=== PATIENT | male | born 1960 | race Caucasian/White ===

== ENCOUNTER → 2024-06-01 | Outpatient (CLI) | payer OTHER ==
--- NOTE | 2024-06-01 16:33 | CTL ---
EXAMINATION TYPE: CT Low Dose Lung DATE OF EXAM ORDERED: 06/01/2024 COMPARISON: None CLINICAL INDICATION: Male, 64 years old with history of Z12.2, Z87.891 PERSONAL HISTORY OF NICOTINE D EPEND; PHH, Lung screening for nicotine dependence of 1ppd x20 years, hx of COPD, CAD, Congestive hea rt failure, Emphysema and Tuberculosis. Quit smoking in 2019., Lung cancer screening, History of Smok ing/tobacco use. TECHNIQUE: Low dose computed tomography scan was performed through the chest at 1 mm thick sections a nd reconstructed images in multiple planes at 1 mm and [address] DLP: 99.[address] CTDI: 2.6 mGy Automated exposure control for dose reduction was used. CT DIAGNOSTIC QUALITY: Satisfactory EXAMINATION TYPE: CT Low Dose Lung DATE OF EXAM ORDERED: 06/01/2024 CLINICAL INDICATION: Male, 64 years old with history of Z12.2, Z87.891 PERSONAL HISTORY OF NICOTINE D EPEND, history of tobacco use, Lung cancer screening CT DLP: 99.[address] CTDI: 2.6 mGy Automated exposure control for dose reduction was used. Comparison: None TECHNIQUE: Low dose computed tomography scan was performed through the chest at 1 mm thick sections a nd reconstructed images in multiple planes at 1 mm and [address] DIAGNOSTIC QUALITY: Satisfactory FINDINGS: There are mild to moderate emphysematous changes with an upper lobe predominance. There is mild chronic interstitial scarring and mild bronchiectasis in the upper lobes anteriorly. Th ere are scattered micronodules in calcified granuloma in the right upper lobe. There is no suspicious lung mass or nodule. There is no airspace consolidation. There is no pleural effusion or pneumothorax. There is mild cardiomegaly. The great vessels chest are normal. There is no mediastinal, hilar or axillary adenopathy. Limited scanning through the upper abdomen reveals moderate splenomegaly. The contour of the liver is lobulated which is consistent with cirrhotic liver morphology. There is mild ascites. There are no focal osseous lesions. IMPRESSION: 1. Lung rads Category 2 benign.. Continue routine screening at yearly intervals. 2. No acute cardiopulmonary disease. [id number] emphysematous changes. 3. Mild cardiomegaly. 4. Cirrhotic liver with splenomegaly and mild ascites. [facility], Workstation: BO, 06/01/2024 4:31 PM
== END | disposition home or self-care (01) ==
LOC: RADCTMAIN 15:13
PROVIDERS: ATTEND Internal Medicine
DX: Z12.2 Encounter for screening for malignant neoplasm of respiratory organs (principal); I51.7 Cardiomegaly; R18.8 Other ascites; K74.60 Unspecified cirrhosis of liver; J43.9 Emphysema, unspecified; Z87.891 Personal history of nicotine dependence
CPT/HCPCS: 71271

== ENCOUNTER → 2024-06-02 | Outpatient (CLI) | payer OTHER ==
[2024-06-02 16:33] LABS: INR 1.13 sec (0.93-1.11); Prothrombin Time 12.8 sec (9.9-11.9)
[2024-06-02 16:49] LABS: ALT 18 U/L (10-49); AST 27 U/L (14-35); Albumin 3.9 g/dL (3.8-4.9); Albumin/Globulin Ratio 1.03 Ratio (1.60-3.17); Alkaline Phosphatase 90 U/L (41-126); Blood Urea Nitrogen 15.4 mg/dL (9.0-27.0); Calcium 9.3 mg/dL (8.7-10.3); Carbon Dioxide 25.3 mmol/L (21.6-31.8); Chloride 106 mmol/L (96-109); Chol/HDL Ratio 2.61 Ratio; Globulin 3.8 g/dL (1.6-3.3); Glucose 226 mg/dL (70-110); LDL Cholesterol,Calculated 66.6 mg/dL (0.0-131.0); Potassium 5.7 mmol/L (3.5-5.5); Sodium 139 mmol/L (135-145); Total Bilirubin 0.4 mg/dL (0.3-1.2); Total Protein 7.7 g/dL (6.2-8.2); VLDL Calculation 8.56 mg/dL (5.00-40.00)
[2024-06-02 16:50] LABS: Prostate Specific Antigen 0.09 ng/mL (0.000-4.500)
[2024-06-02 17:03] LABS: Basophils # (A) 0.12 X 10*3/uL (0.00-0.10); Basophils % (A) 1.3 %; Elliptocytes 2+ (None Seen); Eosinophils # (A) 0.43 X 10*3/uL (0.04-0.35); Eosinophils % (A) 4.7 %; HCT 34.5 % (39.6-50.0); HGB 9.2 g/dL (13.0-17.0); Hypochromasia (M) 2+ (None Seen); Lymphocytes # (A) 0.63 X 10*3/uL (0.90-5.00); Lymphocytes % (A) 6.8 %; MCHC 26.7 g/dL (32.0-37.0); MCV 71.4 FL (80.0-97.0); Mean Platelet Volume 11.7 FL (9.5-12.2); Microcytosis (M) 2+ (None Seen); Monocytes # (A) 0.72 X 10*3/uL (0.20-1.00); Monocytes % (A) 7.8 %; NRBC Per 100 WBC 0 X 10*3/uL (0.00-0.01); Neutrophils # (A) 7.31 X 10*3/uL (1.80-7.70); Neutrophils % (A) 79.1 %; Platelet Count 606 X 10*3/uL (140-440); RBC 4.83 X 10*6/uL (4.40-5.60); RDW 20.1 % (11.5-14.5); WBC 9.24 X 10*3/uL (4.50-10.00)
== END | disposition home or self-care (01) ==
LOC: LABWHC1 07:47
PROVIDERS: ATTEND Internal Medicine
DX: Z12.5 Encounter for screening for malignant neoplasm of prostate (principal); E11.9 Type 2 diabetes mellitus without complications; K74.60 Unspecified cirrhosis of liver
CPT/HCPCS: 36415; 80053; 80061; 83036; 83735; 84153; 84443; 85025; 85610

== ENCOUNTER 2024-08-21 08:05 | Day surgery (SDC) | payer MEDICARE, OTHER ==
[2024-08-21 09:16] LABS: Immature Platelet Fraction 6.6 % (1.1-6.1); Mean Platelet Volume 10.9 fL (9.5-12.2); Platelet Count 499 10*3/uL (140-440)
[2024-08-21 09:21] LABS: INR 1.3 (<1.2); Prothrombin Time 13.4 sec (10.0-12.5)
[2024-08-21 09:30] LABS: African American GFR (CKD) >90 (>60 ml/min/1.73 sqM); Glucose 197 mg/dL (74-99); Non-African American GFR(CKD) 80 (>60 ml/min/1.73 sqM)
[2024-08-21 09:34] VITALS: TEMP 98
[2024-08-21] MEDS: ALBUMIN HUMAN 25% 50 ML in EMPTY BAG 1 BAG IVPB SCH (10:04)
[2024-08-21 10:27] VITALS: BP 138/80; PULSE 67; RESP 18
--- NOTE | 2024-08-21 12:05 | US ---
EXAMINATION TYPE: US paracentesis abd w/image DATE OF EXAM: 08/21/2024 9:51 AM COMPARISON: prior paracentesis. CLINICAL INDICATION:Male, 64 years old with history of R18.8 OTHER ASCITES; , ascites ATTENDING: Dr. Zaire Ordonez PROCEDURE: Informed consent was obtained. The risks of the procedure were extensively explained incl uding risk of damage to surrounding bowel with perforation and need for additional procedures. Proced ure was performed in the ultrasound procedure suite. Ultrasound imaging of the abdomen demonstrate as citic fluid. An appropriate access site was localized to the right lower abdomen. Timeout was taken p er protocol. The skin was prepped and draped in the usual sterile fashion and then locally anesthetiz ed with 1% lidocaine. The peritoneal cavity was then accessed via a 5-Mozambican one-step needle/cathete r. Approximately 5300 mL of clear straw-colored fluid was obtained. Postprocedural imaging of the a bdomen demonstrate a minimal amount of abdominal fluid. Patient tolerated procedure well without immediate complication. Hemostasis at the procedural site w as obtained with a sterile bandage placed. The patient was monitored in the holding area following th e procedure and was subsequently discharged in stable condition. IMPRESSION: Ultrasound guided paracentesis, with approximately 5300 mL of clear straw-colored fluid drained. No i mmediate complications were evident. [facility], , 08/21/2024 12:03 PM
== END 2024-08-21 10:40 | disposition home or self-care (01) ==
LOC: RADPROMAIN 08:05
PROVIDERS: ATTEND Internal Medicine Gastroenterology
DX: R18.8 Other ascites (principal)
CPT/HCPCS: 82565; 82947; 85049; 85610; 36415; 49083; P9047

== ENCOUNTER 2024-09-15 07:31 | Day surgery (SDC) | payer MEDICARE, OTHER ==
[2024-09-13 13:53] VITALS: BMI 34.0
[~2024-09-15 07:31] MED LIST: LIDOCAINE 1% (10MG/ML) FOR IV START INTRADERMA PRN
[2024-09-15 08:06] VITALS: TEMP 97
[2024-09-15] MEDS: LACTATED RINGERS 1,000 ML IV SCH (08:14)
[2024-09-15] MEDS: IV FLUID CONTINUATION 1,000 ML IV ONE (08:15)
[2024-09-15] MEDS ORDERED: LIDOCAINE 2% (PF) 20 MG/ML 5 ML VIAL ONE (08:16)
[2024-09-15] MEDS ORDERED: PROPOFOL 10 MG/ML 20 ML VIAL IV ONE (08:16)
[2024-09-15 08:23] LABS: Glucose,Whole Blood 140 mg/dL (70-110)
--- NOTE | 2024-09-15 08:43 | P.PCN ---
Date of Procedure: 09/15/24 Procedure(s) Performed: Brief history: Patient is a pleasant 64-year-old white male scheduled for an elective upper endoscopy as well as colonoscopy as a part of evaluation of iron deficiency anemia. He has history of cirrhosis of the liver diagnosed 6 months ago. Procedure performed: Esophagogastroduodenoscopy with biopsy Colonoscopy with biopsy and Endo Clip placement Preoperative diagnosis: Iron deficiency anemia History of liver cirrhosis Anesthesia: MAC Procedure: After informed consent was obtained from the patient was brought into the endoscopy unit and IV sedation was administered by anesthesia under continuous monitoring. Initially upper endoscopy was done. The Olympus GF 160 video endoscope was inserted inserted into the mouth and esophagus intubated without any difficulty and was gradually advanced into the stomach and duodenum and carefully examined. The bulb and second part of the duodenum appeared normal. The scope was then withdrawn into the stomach adequately insufflated with air and upon careful examination the antrum and body, cardia and fundus had gastritis and changes consistent with mild to moderate portal hypertensive gastropathy. Biopsies were done from the antrum. No gastric varices identified.. The scope was then withdrawn into the esophagus. The GE junction was located at 40 cm to the incisors. It appeared regular with no erythema erosions or ulcerations. There were large mid and distal esophageal varices identified with no red jeevan inman. Patient tolerated the procedure well. At this time the patient continued to remain sedation. Initial digital rectal examination was normal. Olympus CF 160 video colonoscope was then inserted into the rectum and gradually advanced to the cecum without any difficulty. Careful examination was performed as the scope was gradually being withdrawn. The prep was excellent. The cecum, appeared normal. The ascending colon there was a 4 mm sessile polyp removed by cold biopsy. In the descending colon there was another 3 mm sessile polyp removed by cold biopsy. In the rectum there was a 4 mm proximal rectal polyp that was removed by cold biopsy and immediately there was significant oozing identified. Hence an Endo Clip was placed with good hemostasis. Rest of the rectum appeared normal. Retroflexion was performed in the rectum and no lesions were noted. Patient tolerated the procedure well. Impression: 1. Upper endoscopy revealed large mid and distal esophageal varices with no red jeevan inman and mild to moderate portal hypertensive gastropathy 2. Colonoscopy revealed: 4 millimeter ascending colon polyp status post cold biopsy 3 mm descending colon polyp status post cold biopsy 4 mm proximal rectal polyp status post cold biopsy followed by oozing and hence Endo Clip was placed with good hemostasis Recommendations: Findings of this examination were discussed with the patient as well as his family. He was advised to follow the biopsy results. Will start him on nonselective beta-cristel as a part of primary prevention of esophageal variceal bleeding because of presence of large esophageal varices and also discussed about esophageal variceal ligation in the near future. Follow-up in the office in 2 weeks.
[2024-09-15 08:57] VITALS: RESP 12
[2024-09-15 09:12] VITALS: BP 149/87; PULSE 59
== END 2024-09-15 09:47 | disposition home or self-care (01) ==
LOC: ORWHC2ENDO 07:31
PROVIDERS: ATTEND Internal Medicine Gastroenterology
DX: K29.50 Unspecified chronic gastritis without bleeding (principal); D12.2 Benign neoplasm of ascending colon; D12.4 Benign neoplasm of descending colon; D12.8 Benign neoplasm of rectum; K21.9 Gastro-esophageal reflux disease without esophagitis; K70.31 Alcoholic cirrhosis of liver with ascites; I85.10 Secondary esophageal varices without bleeding; B19.20 Unspecified viral hepatitis C without hepatic coma; D50.9 Iron deficiency anemia, unspecified; I25.10 Atherosclerotic heart disease of native coronary artery without angina pectoris; J44.89 Other specified chronic obstructive pulmonary disease; I50.9 Heart failure, unspecified; H91.90 Unspecified hearing loss, unspecified ear; Z95.1 Presence of aortocoronary bypass graft; Z99.89 Dependence on other enabling machines and devices; Z79.02 Long term (current) use of antithrombotics/antiplatelets; Z79.82 Long term (current) use of aspirin; Z79.4 Long term (current) use of insulin; Z79.899 Other long term (current) drug therapy
CPT/HCPCS: 45380; 43239; J2704; J2003; 88305

== ENCOUNTER 2024-09-23 12:04 | Emergency (ER) | payer MEDICARE ==
[2024-09-23 12:10] VITALS: BP 170/79; PULSE 75; RESP 20; TEMP 98.1
--- NOTE | 2024-09-23 12:42 | ED ---
General Adult HPI - General Chief complaint: Abdominal Pain Stated complaint: Abd swelling Time Seen by Provider: 09/23/24 12:15 Source: patient, RN notes reviewed Mode of arrival: ambulatory Limitations: no limitations - History of Present Illness Initial comments: Patient is a 64-year-old male presenting to the emergency department for abdominal swelling. Patient does have history of liver disease and ascites. Patient has been drained twice previously. Patient states this has been worsening over the past few days. Patient may have some mild dyspnea associated. Patient feels full. No leg pain or leg swelling. - Related Data Home Medications Medication Instructions Recorded Confirmed Aspirin [Adult Low Dose Aspirin EC] 81 mg PO DAILY 08/16/24 09/13/24 Atorvastatin [Lipitor] 40 mg PO HS 08/16/24 09/13/24 Ferrous Sulfate [Iron] 325 mg PO BID 08/16/24 09/13/24 Furosemide [Lasix] 40 mg PO DAILY 08/16/24 09/13/24 Insulin Glargine,Hum.rec.anlog 20 units SQ BID 08/16/24 09/13/24 [Lantus Solostar Pen] Isosorbide Mononitrate ER [Imdur] 30 mg PO DAILY 08/16/24 09/13/24 Spironolactone 50 mg PO DAILY 08/16/24 09/13/24 Allergies Allergy/AdvReac Type Severity Reaction Status Date / Time Iodinated Contrast Media Allergy Rash/Hives Verified 09/23/24 12:10 morphine Allergy Rash/Hives Verified 09/23/24 12:09 Review of Systems ROS Statement: Those systems with pertinent positive or pertinent negative responses have been documented in the HPI. ROS Other: All systems not noted in ROS Statement are negative. Constitutional: Denies: fever Eyes: Denies: eye pain ENT: Denies: throat pain Cardiovascular: Denies: chest pain Gastrointestinal: Reports: as per HPI Genitourinary: Denies: dysuria Musculoskeletal: Denies: back pain Past Medical History Past Medical History: Asthma, Diabetes Mellitus, Liver Disease Additional Past Medical History / Comment(s): CHF History of Any Multi-Drug Resistant Organisms: None Reported Past Surgical History: Heart Catheterization With Stent Additional Past Surgical History / Comment(s): Triple 2010, 3 stent placement Past Anesthesia/Blood Transfusion Reactions: No Reported Reaction Date of Last Stent Placement:: 07/2023 Past Psychological History: Depression Smoking Status: Former smoker, Vaper Past Alcohol Use History: None Reported Past Drug Use History: None Reported - Past Family History Mother History Unknown: Yes Additional Family Medical History / Comment(s): Alcoholic Father Additional Family Medical History / Comment(s): lung General Exam Limitations: no limitations General appearance: alert, in no apparent distress Head exam: Present: normocephalic Eye exam: Present: normal appearance Neck exam: Present: normal inspection Respiratory exam: Present: normal lung sounds bilaterally Cardiovascular Exam: Present: regular rate, normal rhythm GI/Abdominal exam: Present: distended (Moderate ascites). Absent: tenderness Extremities exam: Present: normal inspection. Absent: pedal edema, calf tenderness Neurological exam: Present: alert Psychiatric exam: Present: normal affect, normal mood Skin exam: Present: normal color Course Vital Signs 09/23/24 12:07 Temperature 98.1 F Pulse Rate 75 Respiratory 20 Rate Blood Pressure 170/79 O2 Sat by Pulse 96 Oximetry Medical Decision Making - Medical Decision Making Was pt. sent in by a medical professional or institution (, PA, CULTURE MEDIA LABORATORY ASSISTANT, urgent care, hospital, or long-term...) When possible be specific @ -No Did you speak to anyone other than the patient for history (EMS, parent, family, police, friend...)? What history was obtained from this source @ -Family is present and confirms history of liver disease and ascites Did you review nursing and triage notes (agree or disagree)? Why? @ -I reviewed and agree with nursing and triage notes Were old charts reviewed (outside hosp., previous admission, EMS record, old EKG, old radiological studies, urgent care reports/EKG's, long-term records)? Report findings @ -No old charts were reviewed Differential Diagnosis (chest pain, altered mental status, abdominal pain women, abdominal pain men, vaginal bleeding, weakness, fever, dyspnea, syncope, headache, dizziness, GI bleed, back pain, seizure, CVA, palpatations, mental health, musculoskeletal)? @ -Differential Abdominal Pain Men: Appendicitis, cholecystitis, diverticulosis, ischemic bowel, pancreatitis, hepatitis, UTI, gastroenteritis, AAA, incarcerated hernia, bowel obstruction, constipation, inflammatory bowel, hepatitis, peptic ulcer disease, splenic infarction, perforated viscus, testicular torsion, this is not meant to be an all-inclusive list EKG interpreted by me (3pts min.). @ -As above X-rays interpreted by me (1pt min.). @ -None done CT interpreted by me (1pt min.). @ -None done U/S interpreted by me (1pt. min.). @ -None done What testing was considered but not performed or refused? (CT, X-rays, U/S, labs)? Why? @ -None What meds were considered but not given or refused? Why? @ -None Did you discuss the management of the patient with other professionals (professionals i.e. Dr., PA, CULTURE MEDIA LABORATORY ASSISTANT, lab, RT, psych nurse, social work instructor, shaker washer, teacher, president and chief executive officer, case sealer)? Give summary @ -No Was smoking cessation discussed for >3mins.? @ -No Was critical care preformed (if so, how long)? @ -No Were there social determinants of health that impacted care today? How? (Homelessness, low income, unemployed, alcoholism, drug addiction, transportation, low edu. Level, literacy, decrease access to med. care, nursing home, rehab)? @ -No Was there de-escalation of care discussed even if they declined (Discuss DNR or withdrawal of care, Hospice)? DNR status @ -No What co-morbidities impacted this encounter? (DM, HTN, Smoking, COPD, CAD, Cancer, CVA, ARF, Chemo, Hep., AIDS, mental health diagnosis, sleep apnea, morbid obesity)? @ -Liver disease and history of ascites Was patient admitted / discharged? Hospital course, mention meds given and route, prescriptions, significant lab abnormalities, going to OR and other pertinent info. @ -Patient presents with ascites with desire to have paracentesis done. There is no availability of interventional radiology or gastroenterology. Patient is agreeable to discharge and will follow-up preferably Wednesday for outpatient paracentesis. Patient is made aware if symptoms worsen he can be reevaluated or can consider further evaluation at a different facility such as [facility] who will likely have the ability to do this sooner. Patient does demonstrate understanding. Patient provided with prescription for ultrasound paracentesis Undiagnosed new problem with uncertain prognosis? @ -No Drug Therapy requiring intensive monitoring for toxicity (Heparin, Nitro, Insulin, Cardizem)? @ -No Were any procedures done? @ -No Diagnosis/symptom? @ -Ascites Acute, or Chronic, or Acute on Chronic? @ -Acute Uncomplicated (without systemic symptoms) or Complicated (systemic symptoms)? @ -Default Side effects of treatment? @ -No Exacerbation, Progression, or Severe Exacerbation? @ -No Poses a threat to life or bodily function? How? (Chest pain, [place], [place], pneumonia, PE, COPD, DKA, ARF, appy, cholecystitis, CVA, Diverticulitis, Homicidal, Suicidal, threat to staff... and all critical care pts) @ -No Disposition Clinical Impression: Ascites Disposition: HOME SELF-CARE Condition: Stable Instructions (If sedation given, give patient instructions): Ascites (ED) Additional Instructions: Prescription provided for ultrasound paracentesis of the abdomen. Call Wednesday to have this set up and done. If unable to have this done you can be reevaluated in the emergency department at any time. Return for difficulty breathing, increased pain, increased swelling, fever, vomiting, worsening or changing symptoms or any other concerns. Is patient prescribed a controlled substance at d/c from ED?: No Referrals: Moises Ballard DO [Primary Care Provider] - 1-2 days Time of Disposition: 12:42
[2024-09-23] MEDS: FUROSEMIDE 80 MG TAB PO STA (13:13)
== END 2024-09-23 13:15 | disposition home or self-care (01) ==
LOC: EC 12:04
DX: R18.8 Other ascites (principal); Z87.891 Personal history of nicotine dependence; Z91.041 Radiographic dye allergy status
CPT/HCPCS: 99283

== ENCOUNTER 2024-09-25 12:58 | Day surgery (SDC) | payer MEDICARE ==
[2024-09-25 13:34] LABS: Immature Platelet Fraction 5.4 % (1.1-6.1); Platelet Count 728 10*3/uL (140-440)
[2024-09-25 13:40] LABS: African American GFR (CKD) 83 (>60 ml/min/1.73 sqM); Glucose 166 mg/dL (74-99); Non-African American GFR(CKD) 72 (>60 ml/min/1.73 sqM)
[2024-09-25 13:41] LABS: INR 1.2 (<1.2); Prothrombin Time 13.2 sec (10.0-12.5)
[2024-09-25 13:45] VITALS: RESP 16; TEMP 98
[2024-09-25] MEDS: ALBUMIN HUMAN 25% 50 ML in EMPTY BAG 1 BAG IVPB SCH (14:08)
[2024-09-25 15:12] VITALS: BP 165/95; PULSE 75
--- NOTE | 2024-09-25 15:37 | US ---
EXAMINATION TYPE: US paracentesis abd w/image DATE OF EXAM: 09/25/2024 CLINICAL HISTORY: 64-year-old male R18.8, other ascites, distention and pain The procedure was discussed with the patient. The risks, complications, benefits, and alternatives we re discussed and any questions were answered. Informed consent was obtained. The patient was placed s upine on the ultrasound table and prepped and draped in the usual sterile fashion. All elements of maximal barrier technique were utilized. Ultrasound was utilized to determine the precise skin entry site along the right lower quadrant. A 5 Spanish One-Step catheter and trocar technique was utilized to access the ascites collection under direct ultrasound guidance. Approximately 8.6 liters of clear, straw-colored fluid was removed. Catheter was removed, hemostasis obtained, and a dressing placed. The patient was stable throughout the procedure and remained stable upon discharge from Department of Radiology. IMPRESSION: Successful therapeutic paracentesis under ultrasound guidance. 8.6 L of fluid removed. [facility], , 09/25/2024 3:34 PM
== END 2024-09-25 15:00 | disposition home or self-care (01) ==
LOC: RADPROMAIN 12:58
PROVIDERS: ATTEND Emergency Medicine
DX: R18.8 Other ascites (principal)
CPT/HCPCS: 36415; 49083; 82565; 82947; 85049; 85610